=== PATIENT | female | born 1975 | race Caucasian/White ===

== ENCOUNTER 2017-10-19 04:38 | Emergency (ER) | payer MEDICAID ==
[~2017-10-19] VITALS: Ht 167.6 cm; Wt 81.0 kg
[2017-10-19 07:33] LABS: BASOPHILS % 0.6 % (0.0-2.0); EOSINOPHILS % 3.5 % (0.0-5.0); HEMATOCRIT. 36.3 % (36.0-48.0); HEMOGLOBIN. 11.8 g/dL (12.0-16.0); LYMPHOCYTES % 31.8 % (20.0-50.0); MEAN CORPUSCULAR HEMOGLOBIN 25.4 pg (28.0-32.0); MEAN CORPUSCULAR VOLUME 78.5 fL (81.0-99.0); MEAN PLATELET VOLUME 8.6 fl (7.4-10.4); MONOCYTES % 7.1 % (2.0-8.0); PLATELET 224 x1000/uL (130-400); PROTHROMBIN TIME 10.2 sec (9.4-11.6); RED BLOOD CELL COUNT 4.63 mill/uL (4.2-5.4); RED CELL DISTRIBUTION WIDTH 17.5 % (11.6-14.6)
[2017-10-19 07:36] LABS: CHLORIDE 109 mEq/L (98-107)
[2017-10-19 07:39] LABS: AMMONIA 22 uMol/L (<32)
[2017-10-19 07:40] LABS: ETHANOL BLOOD < 10 mg/dL
[2017-10-19 07:47] LABS: PHENOBARBITAL < 2.1 ug/mL (15.0-40.0)
[2017-10-19 08:04] LABS: CLARITY URINE CLOUDY (CLEAR); COLOR URINE YELLOW (YELLOW); KETONES URINE NEGATIVE (NEGATIVE); LEUKOCYTE ESTERASE URINE 1+ (NEGATIVE); NITRITE URINE NEGATIVE (NEGATIVE); OCCULT BLOOD URINE NEGATIVE (NEGATIVE); PH URINE 5.5 (4.5-8.0); PROTEIN URINE TRACE (NEGATIVE); SPECIFIC GRAVITY URINE 1.037 (1.005-1.030)
[2017-10-19 08:59] LABS: *AMPHETAMINES SCREEN URINE NEGATIVE (NEGATIVE); *BARBITURATES SCREEN URINE NEGATIVE (NEGATIVE); *BENZODIAZEPINES SCREEN URINE NEGATIVE (NEGATIVE); METHADONE URINE SCREEN NEGATIVE (NEGATIVE); OPIATES URINE SCREEN NEGATIVE (NEGATIVE)
[2017-10-19 09:00] LABS: CANNABINOID URINE SCREEN NEGATIVE (NEGATIVE); PHENCYCLIDINE URINE SCREEN NEGATIVE (NEGATIVE)
[2017-10-19 09:05] LABS: *COCAINE SCREEN URINE PRESUMTIVE POSITIVE (NEGATIVE)
[2017-10-19] MEDS ORDERED: KETOROLAC 30MG/ML VIAL IV ONE (09:30)
[2017-10-19 10:15] VITALS: BP 130/72
== END 2017-10-19 11:40 | disposition home or self-care (01) ==
LOC: ER 04:38
DX: R56.9 Unspecified convulsions (principal); T40.5X1A Poisoning by cocaine, accidental (unintentional), initial encounter; Y92.89 Other specified places as the place of occurrence of the external cause; Z85.528 Personal history of other malignant neoplasm of kidney; Z88.8 Allergy status to other drugs, medicaments and biological substances
CPT/HCPCS: 36415; 70450; 71045; 80053; 80184; 80305; 81003; 81025; 82140; 83605; 85025; 85610; 87086; 96374; 99285; G0482; J1885; Z7610

== ENCOUNTER 2018-11-21 09:45 | Emergency (ER) | payer MEDICAID ==
[~2018-11-21] VITALS: Ht 162.6 cm; Wt 89.0 kg
[2018-11-21] MEDS ORDERED: SODIUM CHLORIDE 0.9% 1,000 ML IV ONE (10:47)
[2018-11-21] MEDS ORDERED: KETOROLAC 30MG/ML VIAL IV STA (10:47)
[2018-11-21] MEDS ORDERED: GABAPENTIN 300MG CAPSULE PO ONE (11:00)
[2018-11-21] MEDS ORDERED: LEVETIRACETAM 1000MG/100ML 100 ML IV ONE (11:00)
[2018-11-21 11:41] LABS: BASOPHILS % 0.2 % (0.0-2.0); CHLORIDE 111 mEq/L (98-107); EOSINOPHILS % 4.6 % (0.0-5.0); HEMATOCRIT. 32.5 % (36.0-48.0); HEMOGLOBIN. 10.4 g/dL (12.0-16.0); LYMPHOCYTES % 35.3 % (20.0-50.0); MEAN CORPUSCULAR HEMOGLOBIN 22.4 pg (28.0-32.0); MEAN CORPUSCULAR VOLUME 70.1 fL (81.0-99.0); MEAN PLATELET VOLUME 8.3 fl (7.4-10.4); MONOCYTES % 6.6 % (2.0-8.0); NEUTROPHILS % 53.3 % (40.0-76.0); PLATELET 266 x1000/uL (130-400); RED BLOOD CELL COUNT 4.63 mill/uL (4.2-5.4); RED CELL DISTRIBUTION WIDTH 19.3 % (11.6-14.6)
[2018-11-21 11:45] LABS: ETHANOL BLOOD < 10 mg/dL
[2018-11-21 11:49] LABS: CREATINE KINASE 62 IU/L (26-192)
[2018-11-21] MEDS ORDERED: IBUPROFEN 600MG TABLET PO ONE (16:15)
[2018-11-21 16:27] VITALS: BP 108/47
== END 2018-11-21 16:30 | disposition home or self-care (01) ==
LOC: ER 09:45
DX: R55 Syncope and collapse (principal); G40.909 Epilepsy, unspecified, not intractable, without status epilepticus; Z85.41 Personal history of malignant neoplasm of cervix uteri; Z88.8 Allergy status to other drugs, medicaments and biological substances; Z86.19 Personal history of other infectious and parasitic diseases
CPT/HCPCS: 36415; 70450; 71045; 80053; 80320; 82140; 82550; 85025; 93005; 96365; 96375; 99284; J1885; J1953; J7030; Z7610; G0480

== ENCOUNTER 2019-11-25 12:16 | Emergency (ER) | payer MEDICAID, SELFPAY ==
[~2019-11-25] VITALS: Ht 170.2 cm; Wt 91.0 kg
[2019-11-25 14:30] VITALS: BP 130/78
== END 2019-11-25 14:39 | disposition home or self-care (01) ==
LOC: ER 12:16
DX: J40 Bronchitis, not specified as acute or chronic (principal); Z20.828 Contact with and (suspected) exposure to other viral communicable diseases; R51 Headache; R19.7 Diarrhea, unspecified; J34.89 Other specified disorders of nose and nasal sinuses; I49.9 Cardiac arrhythmia, unspecified; Z88.8 Allergy status to other drugs, medicaments and biological substances; Z85.9 Personal history of malignant neoplasm, unspecified; Z86.19 Personal history of other infectious and parasitic diseases
CPT/HCPCS: 71045; 93005; 99283

== ENCOUNTER 2020-03-13 22:39 | Emergency (ER) | payer MEDICAID, OTHER ==
[~2020-03-13] VITALS: Ht 157.5 cm; Wt 91.0 kg
[2020-03-13] MEDS ORDERED: IBUPROFEN 600MG TABLET PO ONE (23:15)
[2020-03-13] MEDS ORDERED: TETANUS, DIPHTHERIA, PERTUSSIS VAC/PF 0.5ML (>7YR OLD) IM ONE (23:15)
[2020-03-13] MEDS ORDERED: LIDOCAINE HCL/EPINEPHRINE 1%-EPI 1:100,000 20 ML VIAL INFIL ONE (23:15)
[2020-03-13] MEDS ORDERED: LIDOCAINE 1%/EPI 1:100,000 10 ML VIAL IJ SCH (23:30)
[2020-03-14 01:14] VITALS: BP 131/81
== END 2020-03-14 01:16 | disposition home or self-care (01) ==
LOC: ER 22:39
DX: S51.811A Laceration without foreign body of right forearm, initial encounter (principal); W54.0XXA Bitten by dog, initial encounter; Y93.89 Activity, other specified; Y92.89 Other specified places as the place of occurrence of the external cause; Y99.8 Other external cause status; Z85.9 Personal history of malignant neoplasm, unspecified; Z88.0 Allergy status to penicillin
CPT/HCPCS: 12002; 73090; 90471; 90715; 99283; J3490; Z7610

== ENCOUNTER 2020-05-18 19:05 | Emergency (ER) | payer SELFPAY ==
[~2020-05-18] VITALS: Ht 167.6 cm; Wt 88.0 kg
[2020-05-18 19:10] VITALS: BP 143/74
[2020-05-18] MEDS ORDERED: HYDROCODONE/ACETAMINOPHEN 5/325MG TABLET PO ONE (19:30)
== END 2020-05-18 20:30 | disposition home or self-care (01) ==
LOC: ER 19:05
DX: R68.84 Jaw pain (principal); Z85.9 Personal history of malignant neoplasm, unspecified; Z88.0 Allergy status to penicillin; Z88.2 Allergy status to sulfonamides
CPT/HCPCS: 99283

== ENCOUNTER 2021-11-26 04:49 | Emergency (ER) | payer SELFPAY ==
[~2021-11-26] VITALS: Ht 165.1 cm; Wt 73.0 kg
[2021-11-26] MEDS ORDERED: SODIUM CHLORIDE 0.9% 1,000 ML IV ONE (05:30)
[2021-11-26] MEDS ORDERED: LEVETIRACETAM 1000MG PREMIX 100 ML IV NR (05:30)
[2021-11-26 05:53] LABS: BASOPHILS % 0.6 % (0.0-2.0); EOSINOPHILS % 8.2 % (0.0-5.0); HEMATOCRIT. 32.4 % (36.0-48.0); HEMOGLOBIN. 9.9 g/dL (12.0-16.0); LYMPHOCYTES % 34.6 % (20.0-50.0); MEAN CORPUSCULAR HEMOGLOBIN 19.3 pg (28.0-32.0); MEAN CORPUSCULAR VOLUME 63.2 fL (81.0-99.0); MEAN PLATELET VOLUME 8.4 fl (7.4-10.4); MONOCYTES % 7.1 % (2.0-8.0); NEUTROPHILS % 49.5 % (40.0-76.0); PLATELET 282 x1000/uL (130-400); RED BLOOD CELL COUNT 5.14 mill/uL (4.2-5.4); RED CELL DISTRIBUTION WIDTH 19.4 % (11.6-14.6)
[2021-11-26 06:02] LABS: CHLORIDE 109 mEq/L (98-107)
[2021-11-26 06:10] LABS: ETHANOL BLOOD < 10 mg/dL
[2021-11-26 06:59] LABS: PLATELET ESTIMATE NORMAL
[2021-11-26 13:21] VITALS: BP 146/80
[2021-11-26 13:24] LABS: CLARITY URINE CLOUDY (CLEAR); COLOR URINE YELLOW (YELLOW); KETONES URINE NEGATIVE (NEGATIVE); LEUKOCYTE ESTERASE URINE NEGATIVE (NEGATIVE); NITRITE URINE NEGATIVE (NEGATIVE); OCCULT BLOOD URINE NEGATIVE (NEGATIVE); PROTEIN URINE NEGATIVE (NEGATIVE); SPECIFIC GRAVITY URINE 1.007 (1.005-1.030); UROBILINOGEN URINE 0.2 E.U./dL (0.2-1.0)
[2021-11-26 13:49] LABS: *AMPHETAMINES SCREEN URINE NEGATIVE (NEGATIVE); *BARBITURATES SCREEN URINE NEGATIVE (NEGATIVE); *BENZODIAZEPINES SCREEN URINE NEGATIVE (NEGATIVE); CANNABINOID URINE SCREEN NEGATIVE (NEGATIVE); METHADONE URINE SCREEN NEGATIVE (NEGATIVE); OPIATES URINE SCREEN NEGATIVE (NEGATIVE); PHENCYCLIDINE URINE SCREEN NEGATIVE (NEGATIVE)
[2021-11-26 13:51] LABS: *COCAINE SCREEN URINE PRESUMTIVE POSITIVE (NEGATIVE)
== END 2021-11-26 13:40 | disposition home or self-care (01) ==
LOC: ER 04:49
DX: G40.909 Epilepsy, unspecified, not intractable, without status epilepticus (principal); Z20.822 Contact with and (suspected) exposure to COVID-19; Z85.9 Personal history of malignant neoplasm, unspecified; Z88.0 Allergy status to penicillin
CPT/HCPCS: 36415; 71045; 80053; 80305; 80320; 81003; 82962; 85025; 87426; 96365; 99285; C9803; J1953; G0480

== ENCOUNTER 2022-02-03 17:49 | Emergency (ER) | payer SELFPAY ==
[~2022-02-03] VITALS: Ht 170.2 cm; Wt 78.0 kg
[2022-02-03] MEDS ORDERED: ONDANSETRON HCL 4MG/2ML INJ IV STA (18:30)
[2022-02-03] MEDS ORDERED: SODIUM CHLORIDE 0.9% 1,000 ML IV ONE (18:30)
[2022-02-03 19:00] LABS: BASOPHILS % 0.8 % (0.0-2.0); EOSINOPHILS % 2.9 % (0.0-5.0); HEMATOCRIT. 33.4 % (36.0-48.0); HEMOGLOBIN. 10.2 g/dL (12.0-16.0); LYMPHOCYTES % 37.2 % (20.0-50.0); MEAN CORPUSCULAR HEMOGLOBIN 20.5 pg (28.0-32.0); MEAN CORPUSCULAR VOLUME 66.8 fL (81.0-99.0); MEAN PLATELET VOLUME 8.8 fl (7.4-10.4); MONOCYTES % 5.8 % (2.0-8.0); NEUTROPHILS % 53.3 % (40.0-76.0); PLATELET 297 x1000/uL (130-400); RED CELL DISTRIBUTION WIDTH 22.7 % (11.6-14.6)
[2022-02-03 19:06] LABS: CHLORIDE 111 mEq/L (98-107)
[2022-02-03 19:08] LABS: HCG SCREEN NEGATIVE
[2022-02-03] MEDS ORDERED: GABAPENTIN 300MG CAPSULE PO STA (19:30)
[2022-02-03] MEDS ORDERED: LEVETIRACETAM 500MG/5ML CUP PO ONE (19:30)
[2022-02-03 19:41] LABS: PLATELET ESTIMATE NORMAL
[2022-02-03] MEDS ORDERED: CIPR-263 MT (20:03)
[2022-02-03 20:40] VITALS: BP 108/68
== END 2022-02-03 20:40 | disposition home or self-care (01) ==
LOC: ER 17:49
DX: R19.7 Diarrhea, unspecified (principal); Z88.0 Allergy status to penicillin
CPT/HCPCS: 36415; 80053; 83690; 84703; 85025; 93005; 96361; 96374; 99284; J2405; J7030

== ENCOUNTER 2022-03-25 05:52 | Emergency (ER) | payer MEDICAID ==
[~2022-03-25] VITALS: Ht 157.5 cm; Wt 70.0 kg
[~2022-03-25 05:52] MED LIST: CIPR-263 MT
[2022-03-25 06:05] VITALS: BP 145/65
== END 2022-03-25 09:07 | disposition left against medical advice (07) ==
LOC: ER 05:52
DX: Z53.21 Procedure and treatment not carried out due to patient leaving prior to being seen by health care provider (principal)

== ENCOUNTER 2022-04-24 02:55 | Emergency (ER) | payer MEDICAID ==
[~2022-04-24] VITALS: Ht 160 cm; Wt 93.8 kg
[2022-04-24 03:07] VITALS: BP 134/98
[2022-04-24] MEDS ORDERED: LIDOCAINE HCL 1% 20ML VIAL (Pyxis) INJ INFIL ONE (08:30)
[2022-04-24] MEDS ORDERED: SULF1TAB48 MT (09:24)
[2022-04-24] MEDS ORDERED: IBUPROFEN 400MG TABLET PO ONE (09:30)
== END 2022-04-24 09:50 | disposition home or self-care (01) ==
LOC: ER 03:10
DX: L02.412 Cutaneous abscess of left axilla (principal); L02.411 Cutaneous abscess of right axilla; Z85.3 Personal history of malignant neoplasm of breast; G40.909 Epilepsy, unspecified, not intractable, without status epilepticus; Z88.0 Allergy status to penicillin; Z88.8 Allergy status to other drugs, medicaments and biological substances
CPT/HCPCS: 10060; 99283; J3490